=== PATIENT | male | born 1950 ===

== ENCOUNTER 2024-10-26 07:36 | Day surgery (SDC) | payer MEDICARE, OTHER ==
[~2024-10-26] VITALS: Ht 182.9 cm; Wt 92.0 kg
[~2024-10-26 07:36] MED LIST: EPINEPhrine HCl 1 MG / ML 30ML Vial ONE; Lidocaine 2%-Epineph 1:200000 20 ML SDV ONE
[2024-10-26] MEDS ORDERED: Tranexamic Acid 100 ML IV ONE (07:52)
[2024-10-26] MEDS ORDERED: OMEP20ER PO (08:27)
[2024-10-26] MEDS ORDERED: POTA10T PO (08:28)
[2024-10-26] MEDS ORDERED: POTA10T (08:28)
[2024-10-26] MEDS ORDERED: ATOR10 PO (08:29)
[2024-10-26] MEDS ORDERED: HYDCHL25 PO (08:29)
[2024-10-26] MEDS ORDERED: ATEN100 PO (08:30)
[2024-10-26] MEDS ORDERED: ATOR40TA PO (08:30)
[2024-10-26] MEDS ORDERED: TAMSULOSIN HCL0.4 M1 PO (08:31)
[2024-10-26] MEDS ORDERED: Loradamed10 MG PO (08:31)
[2024-10-26] MEDS ORDERED: GLUC500 (08:32)
[2024-10-26] MEDS ORDERED: TACR1 PO (08:32)
[2024-10-26] MEDS ORDERED: FISH OIL 1,0001 EA10 PO (08:32)
[2024-10-26] MEDS ORDERED: [UNRECOGNIZED DRUG - OTHER] PO (08:32)
[2024-10-26] MEDS ORDERED: FentaNYL Citrate 50 MCG/ML 2 ML Injection ONE (08:45)
[2024-10-26] MEDS ORDERED: Lidocaine HCl 4% 5 ML SDA ONE (09:18)
[2024-10-26] MEDS ORDERED: Ondansetron HCl 2 MG / ML 2ML Vial ONE (09:22)
[2024-10-26] MEDS ORDERED: Dexamethasone Sod Phos 10 MG/ML 1ML VIAL ONE (09:22)
[2024-10-26] MEDS ORDERED: Rocuronium Bromide 10 MG/ML 5ML Injection IV ONE (09:22)
[2024-10-26] MEDS ORDERED: Sugammadex Sodium 200 MG/2ML SDV (100 MG/ML) ONE (09:48)
[2024-10-26] MEDS ORDERED: ePHEDrine Sulfate 50 MG/ML 1ML Injection ONE (09:55)
[2024-10-26 11:09] VITALS: BP 157/85
--- NOTE | 2024-10-26 11:55 | NUR ---
10/26/24 1155 Benjamin Mcclain PT REPORTED 2/10 PAIN AT TIME OF D/C ([facility] 04/03). HE APPEARED ALERT AND RELAXED. HE DESCRIBED PAIN TOLERABLE AND EXPRESSED READINESS TO RETURN HOME. DRESSING CHANGED IMMEDIATELY PRIOR TO D/C. SCANT AMOUNT OF RED DRAINAGE.
== END 2024-10-26 11:45 | disposition home or self-care (01) ==
LOC: ORSCSDS 07:36
PROVIDERS: Otolaryngology
PROC: 09BM0ZZ Excision of Nasal Septum, Open Approach (ICD-10-PCS; principal; 2024-10-26 09:15)
PROC: 09SL0ZZ Reposition Nasal Turbinate, Open Approach (ICD-10-PCS; principal; 2024-10-26 09:15)
DX: J34.2 Deviated nasal septum (principal); J34.3 Hypertrophy of nasal turbinates; I10 Essential (primary) hypertension; K21.9 Gastro-esophageal reflux disease without esophagitis; Z79.899 Other long term (current) drug therapy
CPT/HCPCS: J0165; J1100; J2003; J2405; J2704; J3010; J7120